=== PATIENT | male | born 1995 | race Caucasian/White ===

== ENCOUNTER 2021-11-19 20:38 | Observation (INO) ==
[2021-11-19 21:15] LABS: BASOPHILS # (AUTO) 0.1 K/uL (0-0.2); BASOPHILS % (AUTO) 0.8 % (0.0-3.0); EOSINOPHILS # (AUTO) 0.1 K/ul (0.0-0.7); EOSINOPHILS % (AUTO) 1.1 % (0.0-7.0); HEMATOCRIT 40.2 % (42.0-52.0); HEMOGLOBIN 13.6 g/dl (14.0-18.0); IMMATURE GRANULOCYTE % (AUTO) 0.6 % (0.0-5.0); LYMPHOCYTES # (AUTO) 1.1 K/uL (0.60-3.4); LYMPHOCYTES % (AUTO) 15.6 (10.0-50.0); MEAN CORPUSCULAR HEMOGLOBIN 30.3 pg (27.0-31.0); MEAN CORPUSCULAR HGB CONC 33.8 (31.8-35.4); MEAN CORPUSCULAR VOLUME 89.5 fl (80.0-94.0); MONOCYTES # (AUTO) 0.3 K/uL (0.4-2.0); MONOCYTES % (AUTO) 3.8 (0-10); NEUTROPHILS # (AUTO) 5.6 K/ul (2.0-6.9); NEUTROPHILS % (AUTO) 78.1 % (42.2-75.2); PLATELET COUNT 384 10^3/uL (140-440); RDW COEFFICIENT OF VARIATION 13.1 % (11.6-14.8); RED BLOOD COUNT 4.49 10^6/ul (4.70-6.10); WHITE BLOOD COUNT 7.12 K/ul (4.2-10.2)
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
[2021-11-19 21:29] LABS: ALBUMIN 4.27 g/dL (3.5-5.0); ALKALINE PHOSPHATASE 99.3 U/L (38-126); ASPARTATE AMINO TRANSFERASE 37.7 U/L (17-59); BILIRUBIN,TOTAL 0.25 mg/dL (0.2-1.3); BLOOD UREA NITROGEN 20.8 mg/dL (9-20); CALCIUM 9.56 mg/dL (8.4-10.2); CARBON DIOXIDE 28.2 mmol/L (22-30.0); CREATININE 0.98 mg/dL (0.60-1.10); GLUCOSE 106.7 mg/dL (74-106); POTASSIUM 4.51 mmol/L (3.5-5.1); SODIUM 140.2 mmol/L (134.5-145); TOTAL PROTEIN 6.97 g/dL (6.3-8.2)
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
[2021-11-19 21:30] LABS: ACETAMINOPHEN < 10.0 ug/ml (10-30); SALICYLATE < 1.00 mg/dL (0-20.0)
[2021-11-19 21:39] LABS: TROPONIN I < 0.012 ng/ml (0.0000-0.120)
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
[2021-11-19 22:26] LABS: AMPHETAMINE SCREEN,URINE POSITIVE (NEGATIVE); BARBITURATE SCREEN,URINE NEGATIVE (NEGATIVE); BENZODIAZEPINES SCREEN,URINE NEGATIVE (NEGATIVE); METHADONE URINE SCREEN NEGATIVE (NEGATIVE); METHAMPHETAMINES SCREEN,URINE POSITIVE (NEGATIVE); OPIATE SCREEN,URINE NEGATIVE (NEGATIVE); OXYCODONE URINE SCREEN NEGATIVE (NEGATIVE); PHENCYCLIDINE SCREEN,URINE NEGATIVE (NEGATIVE); PROPOXYPHENE URINE SCREEN NEGATIVE (NEGATIVE); TRICYCLIC ANTIDEPRESSANTS URIN NEGATIVE (NEGATIVE)
[2021-11-19 22:28] LABS: CANNABINOID SCREEN,URINE POSITIVE (NEGATIVE); COCAIN SCREEN,URINE NEGATIVE (NEGATIVE)
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
[2021-11-20] MEDS ORDERED: ATIVAN IVP PRN (01:52)
[2021-11-20] MEDS ORDERED: ZOFRAN 4 MG/2 ML IVP PRN (01:52)
[2021-11-20] MEDS: D5%-NS-KCL 20 MEQ/L IV SOL 1,000 ML IV SCH ×2 (02:54→11:56)
[2021-11-20 04:04] VITALS: BMI 21.7
[2021-11-20 05:38] LABS: BASOPHILS # (AUTO) 0.1 K/uL (0-0.2); BASOPHILS % (AUTO) 0.8 % (0.0-3.0); EOSINOPHILS # (AUTO) 0.1 K/ul (0.0-0.7); EOSINOPHILS % (AUTO) 0.8 % (0.0-7.0); HEMATOCRIT 37.6 % (42.0-52.0); HEMOGLOBIN 12.3 g/dl (14.0-18.0); IMMATURE GRANULOCYTE % (AUTO) 0.2 % (0.0-5.0); LYMPHOCYTES # (AUTO) 1.5 K/uL (0.60-3.4); LYMPHOCYTES % (AUTO) 23.9 (10.0-50.0); MEAN CORPUSCULAR HEMOGLOBIN 29.7 pg (27.0-31.0); MEAN CORPUSCULAR HGB CONC 32.7 (31.8-35.4); MEAN CORPUSCULAR VOLUME 90.8 fl (80.0-94.0); MONOCYTES # (AUTO) 0.4 K/uL (0.4-2.0); MONOCYTES % (AUTO) 6.5 (0-10); NEUTROPHILS # (AUTO) 4.1 K/ul (2.0-6.9); NEUTROPHILS % (AUTO) 67.8 % (42.2-75.2); PLATELET COUNT 305 10^3/uL (140-440); RDW COEFFICIENT OF VARIATION 12.9 % (11.6-14.8); RED BLOOD COUNT 4.14 10^6/ul (4.70-6.10); WHITE BLOOD COUNT 6.11 K/ul (4.2-10.2)
[2021-11-20 05:56] LABS: ALANINE AMINOTRANSFERASE 14.2 U/L (0-50); ALBUMIN 3.56 g/dL (3.5-5.0); ASPARTATE AMINO TRANSFERASE 30.5 U/L (17-59); BILIRUBIN,TOTAL 0.28 mg/dL (0.2-1.3); BLOOD UREA NITROGEN 14.3 mg/dL (9-20); CALCIUM 8.87 mg/dL (8.4-10.2); CARBON DIOXIDE 27.5 mmol/L (22-30.0); CHLORIDE 107.6 mmol/L (98-107); CREATININE 0.76 mg/dL (0.60-1.10); GLUCOSE 130.6 mg/dL (74-106); MAGNESIUM 2.2 mg/dL (1.6-2.3); POTASSIUM 4.06 mmol/L (3.5-5.1); SODIUM 140.1 mmol/L (134.5-145); TOTAL PROTEIN 6.11 g/dL (6.3-8.2)
[2021-11-20 08:36] LABS: CREATINE KINASE 227.1 U/L (55-170)
[2021-11-20 08:52] LABS: CREATINE KINASE MB 0.985 ng/ml (0.0-2.38)
[2021-11-20 10:28] VITALS: BP 123/79; TEMP 98.7
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
== END 2021-11-20 13:27 | disposition left against medical advice (07) ==
LOC: MEDSURG A 20:38 → ED 20:38 → MEDSURG A 11-20 02:19
PROVIDERS: ADMIT Internal Medicine Geriatric Medicine; ATTEND Emergency Medicine
DX: Z53.29 Procedure and treatment not carried out because of patient's decision for other reasons; F19.921 Other psychoactive substance use, unspecified with intoxication with delirium; M79.10 Myalgia, unspecified site; Z65.3 Problems related to other legal circumstances; T50.902A Poisoning by unspecified drugs, medicaments and biological substances, intentional self-harm, initial encounter; S09.90XA Unspecified injury of head, initial encounter; S16.1XXA Strain of muscle, fascia and tendon at neck level, initial encounter; V89.0XXA Person injured in unspecified motor-vehicle accident, nontraffic, initial encounter

== ENCOUNTER 2023-08-30 22:34 | Observation (INO) ==
[2023-08-30 22:52] VITALS: BMI 18.8
[2023-08-30] MEDS ORDERED: ATIVAN IVP STA (22:52)
[2023-08-30] MEDS ORDERED: INSTA-CHAR IN AQUEOUS BASE PO ONE (22:52)
[2023-08-30] MEDS ORDERED: ATIVAN IVP ONE (23:04)
[2023-08-30 23:06] LABS: BASOPHILS % (AUTO) 0.7 % (0.0-3.0); EOSINOPHILS # (AUTO) 0.1 K/ul (0.0-0.7); EOSINOPHILS % (AUTO) 2.5 % (0.0-7.0); HEMATOCRIT 39.5 % (42.0-52.0); HEMOGLOBIN 13.3 g/dl (14.0-18.0); LYMPHOCYTES # (AUTO) 1.5 K/uL (0.60-3.4); LYMPHOCYTES % (AUTO) 38.2 (10.0-50.0); MEAN CORPUSCULAR HGB CONC 33.7 (31.8-35.4); MEAN CORPUSCULAR VOLUME 92.1 fl (80.0-94.0); MONOCYTES # (AUTO) 0.2 K/uL (0.4-2.0); NEUTROPHILS # (AUTO) 2.1 K/ul (2.0-6.9); NEUTROPHILS % (AUTO) 52.6 % (42.2-75.2); PLATELET COUNT 209 10^3/uL (140-440); RDW COEFFICIENT OF VARIATION 11.4 % (11.6-14.8); RED BLOOD COUNT 4.29 10^6/ul (4.70-6.10); WHITE BLOOD COUNT 4.01 K/ul (4.2-10.2)
[2023-08-30 23:17] LABS: CREATINE KINASE 140.6 U/L (55-170); MAGNESIUM 1.97 mg/dL (1.6-2.3)
--- NOTE | 2023-08-30 23:18 | ED.PDOC ---
General ED Provider: Dr. VALERIE MANZANO DO Chief Complaint: Overdose Stated Complaint: Patient is a 27 yo M here for getting high on wellbutrin overdose Patient afebrile and tachycardic 140 with stable blood pressure Patient reports he took 20 tabs of 100 mg wellbutrin tabs 30 minutes prior to arrival His goal was to get high enough to pass out, but arrive at the ER before he passed out He is on suboxine He denies coingestions Patient alert and orietned x 4 GCS 15 speaking in full senteces on room air Poison control recommends 75 mg PO activated charcoal and PRN benzos to lower heart rate and aggitation Time Seen by Provider: 08/30/23 22:40 Information Source: Patient Nursing and Triage Documentation Reviewed and Agree: Yes Review of Systems Review Of Systems Constitutional: Denies Chills or Fever Eyes: Denies Foreign body sensation or Inflammation Ears, Nose, Mouth, Throat: Denies Ear pain, Loose teeth or Throat pain Respiratory: Denies Cough or Wheezing Cardiac: Reports Palpitations; Denies Chest pain or Syncope GI: Denies Constipated or Diarrhea : Denies Hematuria or Incontinence Musculoskeletal: Denies Back pain, Joint pain or Neck pain Skin: Denies Rash or Cyanosis Neurological: Denies Anxiety or Depressed Endocrine: Denies No symptoms or Excessive sweating Hematologic/Lymphatic: Denies No symptoms or Anemia All Other Systems: Reviewed and Negative [facility] Family History (Updated 11/20/21 @ 03:23 by SARAH GREENWOOD RN) Other Cancer Social History (Updated 11/20/21 @ 03:24 by SARAH GREENWOOD RN) Smoking and tobacco status: Current every day smoker Tobacco type: cigarettes Tobacco: How many years used: 15 Smoking risk assessment performed: Yes Physical Exam Physical Exam Appearance: Reports Well-appearing, Well-nourished and Thin Ill-appearing: Not Applicable Pain Distress: Not Applicable Eyes: Reports PATY and EOMI ENT: Reports Ears normal, Nose normal and Oropharynx normal Neck: Supple Respiratory: Reports Airway patent and Breath sounds clear; Denies Wheezes Cardiovascular: Reports No rub and Tachycardia GI/: Reports Soft and Nontender Musculoskeletal: Reports Normal strength and ROM intact Skin: Reports Warm and Dry Neurological: Reports Sensation intact and Motor intact Psychiatric: Reports Anxious and Depressed Interpretation EKG Interpretation EKG Interpretation By: ED Physician Time of EKG #1: 01:39 Rate: Tachy Interpretation: Sinus tach 139 no stemi qt wnl Time of EKG #2: 04:27 Rate: Normal EKG Interpretation: NSR rate 93 no stemi qt wnl Critical Care Note Critical Care Note Total Critical Care Time (mins): 50 Course Course 08/30/23 22:46 08/30/23 22:46 Orders, Labs, Meds: Lab Review 08/30/23 08/30/23 08/30/23 05:48 22:46 22:47 WBC 4.01 L RBC 4.29 L Hgb 13.3 L Hct 39.5 L MCV 92.1 MCH 31.0 MCHC 33.7 RDW Coeff of Maxwell 11.4 L Plt Count 209 Immature Gran % (Auto) 0.0 Neut % (Auto) 52.6 Lymph % (Auto) 38.2 [place] % (Auto) 6.0 Eos % (Auto) 2.5 Baso % (Auto) 0.7 Neut # (Auto) 2.1 Lymph # (Auto) 1.5 [place] # (Auto) 0.2 L Eos # (Auto) 0.1 Baso # (Auto) 0.0 Immature Gran # (Auto) 0.0 Sodium 140.7 Potassium 4.17 Chloride 102.4 Carbon Dioxide 29.5 Anion Gap 12.97 BUN 11.8 Creatinine 0.98 Estimated GFR (MDRD) 90.00 BUN/Creatinine Ratio 12.04 Glucose 100.5 Calcium 9.29 Magnesium 1.97 Total Bilirubin 0.33 AST 30.3 ALT 17.3 Alkaline Phosphatase 86.4 Total Creatine Kinase 140.6 CK-MB (CK-2) 1.200 CK-MB (CK-2) % 0.8500 Total Protein 7.27 Albumin 4.57 Globulin 2.70 Albumin/Globulin Ratio 1.69 TSH 1.600 Urine Color Urine Clarity Urine pH Ur Specific [place] Urine Protein Urine Glucose (UA) Urine Ketones Urine Blood Urine Nitrite Urine Bilirubin Urine Urobilinogen Ur Leukocyte Esterase Salicylate Level mg/dL 2.20 Urine Opiates Screen Ur Oxycodone Screen Urine Methadone Screen Ur Propoxyphene Screen Acetaminophen < 10.0 L Ur Barbiturates Screen U Tricyclic Antidepress Ur Phencyclidine Scrn Ur Amphetamine Screen U Methamphetamines Scrn U Benzodiazepines Scrn Urine Cocaine Screen U Cannabinoids Screen Plasma/Serum Alcohol < 10.0 SARS CoV-2 RNA Rapid HUSEYIN Negative 08/30/23 23:48 WBC RBC Hgb Hct MCV MCH MCHC RDW Coeff of Maxwell Plt Count Immature Gran % (Auto) Neut % (Auto) Lymph % (Auto) [place] % (Auto) Eos % (Auto) Baso % (Auto) Neut # (Auto) Lymph # (Auto) [place] # (Auto) Eos # (Auto) Baso # (Auto) Immature Gran # (Auto) Sodium Potassium Chloride Carbon Dioxide Anion Gap BUN Creatinine Estimated GFR (MDRD) BUN/Creatinine Ratio Glucose Calcium Magnesium Total Bilirubin AST ALT Alkaline Phosphatase Total Creatine Kinase CK-MB (CK-2) CK-MB (CK-2) % Total Protein Albumin Globulin Albumin/Globulin Ratio TSH Urine Color Yellow Urine Clarity Clear Urine pH 5.5 Ur Specific [place] 1.010 Urine Protein Negative Urine Glucose (UA) Negative Urine Ketones Negative Urine Blood Negative Urine Nitrite Negative Urine Bilirubin Negative Urine Urobilinogen 0.2 Ur Leukocyte Esterase Negative Salicylate Level mg/dL Urine Opiates Screen Negative Ur Oxycodone Screen Negative Urine Methadone Screen Negative Ur Propoxyphene Screen Negative Acetaminophen Ur Barbiturates Screen Negative U Tricyclic Antidepress Negative Ur Phencyclidine Scrn Negative Ur Amphetamine Screen Negative U Methamphetamines Scrn Negative U Benzodiazepines Scrn Negative Urine Cocaine Screen Negative U Cannabinoids Screen Negative Plasma/Serum Alcohol SARS CoV-2 RNA Rapid HUSEYIN Orders Category Date Time Status OBSERVATION [PLACE PATIENT OBSERVATION] .TO [facility] ADMISSION 08/31/23 06:40 Active (MONITORED BED) EKG-(ED ONLY) Stat CARDIO 08/30/23 22:46 Completed EKG-(ED ONLY) Stat CARDIO 08/31/23 03:36 Completed TELEMETRY MONITORING TELE CARE 08/31/23 06:40 Active ACETAMINOPHEN Stat LAB 08/30/23 22:46 Completed BLOOD ALCOHOL Stat LAB 08/30/23 22:46 Completed CBC W/ AUTO DIFF Stat LAB 08/30/23 22:46 Completed CK [CREATINE KINASE] Stat LAB 08/30/23 22:47 Completed COMPREHENSIVE METABOLIC PANEL Stat LAB 08/30/23 22:46 Completed COVID [SARS COV-2 RNA RAPID HUSEYIN] Stat LAB 08/30/23 05:48 Completed DRUG SCREEN, URINE, RAPID Stat LAB 08/30/23 23:48 Completed MAGNESIUM Stat LAB 08/30/23 22:47 Completed SALICYLATE Stat LAB 08/30/23 22:46 Completed THYROID STIMULATING HORMONE Stat LAB 08/30/23 22:46 Completed URINALYSIS C & S IF INDICATED Stat LAB 08/30/23 23:48 Completed Activated Charcoal [Insta-Edel in Aqueous Base] Meds 08/30/23 22:52 Discontinued 75 gm PO ONCE ONE Lorazepam Inj [Ativan] Meds 08/30/23 23:04 Discontinued 1 mg IVP ONCE ONE Lorazepam Inj [Ativan] Meds 08/30/23 22:52 Discontinued 1 mg IVP ONCE STA Sodium Chloride 0.9% [Sodium Chloride] 1,000 ml Meds 08/31/23 06:41 Active IV BOLUS Medications Generic Name Dose Route Start Last Admin Trade Name Freq PRN Reason Stop Dose Admin Sodium Chloride 1,000 mls @ 1,000 mls/hr 08/31/23 06:41 Sodium Chloride IV 08/31/23 07:40 BOLUS STA Discontinued Medications Generic Name Dose Route Start Last Admin Trade Name Freq PRN Reason Stop Dose Admin Charcoal 75 gm 08/30/23 22:52 08/30/23 22:59 Activated Charcoal 25 Gm/120 Ml PO 08/30/23 22:53 75 gm ONCE ONE Administration Lorazepam 1 mg 08/30/23 22:52 08/30/23 22:57 Lorazepam Inj 2 Mg/Ml Disp.Syringe IVP 08/30/23 22:53 1 mg ONCE STA Administration Lorazepam 1 mg 08/30/23 23:04 08/30/23 23:28 Lorazepam Inj 2 Mg/Ml Disp.Syringe IVP 08/30/23 23:05 1 mg ONCE ONE Administration Vital Signs: Temp Pulse Resp BP Pulse Ox 08/31/23 02:20 97 11 L 104/61 96 08/30/23 22:44 99.0 F 135 H 20 137/97 H 98 Patient is a 27 yo M here for accidental overdose of wellbutrin Patient afebrile, tachycardic (140's) with stable blood pressure Exam concerning for tachycardia Patient alert and oriented x4 CGS 15 "I just wanted to get high and I think I am going to pass out" He denies SI, HI or hallucinations 3+ labs and 2 images reviewed by me I consulted poison control - they recommend activated charcoal benzos and 24 elder r obs Patient was pleasant and polite and took all medications leading to improved care Consulted Hospitalist Team, they will obs and discharge at 10 pm when poison control obs window ends Patient agrees to plan He declines psychiatric consult [place] has had an uneventful stay and understands we are keeping him to prevent delayed seizures WDX: Wellbutrin accidental overdose acute with high complexity DDX: I considered withdrawal, sepsis, shock but these are less likely SDOH: Patient is underinsured with little support network and will do better with observation stay Placed on observation He has passed PO and ambulation challenge Critical care: 50 minutes for repeat evaluations, consults, therapies and serial reviews and exams for response to toxidrome Discharge Plan Discharge Patient Disposition: PLACED OBSERVATION Discharge Problem: Accidental overdose Did you review [place] WATCH ENGINEER for ALL controlled substances?: Not Applicable ED Provider: VALERIE MANZANO Condition: Stable Physician Progress Note: []
[2023-08-30 23:19] LABS: ALANINE AMINOTRANSFERASE 17.3 U/L (0-50); ALBUMIN 4.57 g/dL (3.5-5.0); ALKALINE PHOSPHATASE 86.4 U/L (38-126); ASPARTATE AMINO TRANSFERASE 30.3 U/L (17-59); BILIRUBIN,TOTAL 0.33 mg/dL (0.2-1.3); BLOOD UREA NITROGEN 11.8 mg/dL (9-20); CALCIUM 9.29 mg/dL (8.4-10.2); CARBON DIOXIDE 29.5 mmol/L (22-30.0); CHLORIDE 102.4 mmol/L (98-107); CREATININE 0.98 mg/dL (0.60-1.10); GLUCOSE 100.5 mg/dL (74-106); POTASSIUM 4.17 mmol/L (3.5-5.1); SODIUM 140.7 mmol/L (134.5-145); TOTAL PROTEIN 7.27 g/dL (6.3-8.2)
[2023-08-30 23:21] LABS: ACETAMINOPHEN < 10.0 ug/ml (10-30); BLOOD ALCOHOL < 10.0 mg/dL (0.0-50.0)
[2023-08-30 23:32] LABS: CREATINE KINASE MB 1.2 ng/ml (0.0-2.38)
[2023-08-30 23:54] LABS: BILIRUBIN,URINE Negative (NEGATIVE); CLARITY,URINE Clear (CLEAR); COLOR,URINE Yellow (YELLOW); GLUCOSE, URINE (UA) Negative (NEGATIVE); KETONES,URINE Negative (NEGATIVE); LEUKOCYTE ESTERASE ,URINE Negative (NEGATIVE); NITRITE,URINE Negative (NEGATIVE); PH,URINE 5.5 (5-9); PROTEIN,URINE Negative (NEGATIVE); URINE, BLOOD Negative (NEGATIVE); UROBILINOGEN,URINE 0.2 (0.2)
[2023-08-31 00:04] LABS: AMPHETAMINE SCREEN,URINE NEGATIVE (NEGATIVE); BARBITURATE SCREEN,URINE NEGATIVE (NEGATIVE); BENZODIAZEPINES SCREEN,URINE NEGATIVE (NEGATIVE); CANNABINOID SCREEN,URINE NEGATIVE (NEGATIVE); COCAIN SCREEN,URINE NEGATIVE (NEGATIVE); METHADONE URINE SCREEN NEGATIVE (NEGATIVE); METHAMPHETAMINES SCREEN,URINE NEGATIVE (NEGATIVE); OPIATE SCREEN,URINE NEGATIVE (NEGATIVE); OXYCODONE URINE SCREEN NEGATIVE (NEGATIVE); PHENCYCLIDINE SCREEN,URINE NEGATIVE (NEGATIVE); PROPOXYPHENE URINE SCREEN NEGATIVE (NEGATIVE); TRICYCLIC ANTIDEPRESSANTS URIN NEGATIVE (NEGATIVE)
[2023-08-31 06:36] LABS: SARS COV-2 RNA RAPID NAAT NEGATIVE (NEGATIVE)
[2023-08-31] MEDS ORDERED: SODIUM CHLORIDE 1,000 ML IV STA (06:41)
[2023-08-31] MEDS: ATIVAN IVP PRN ×2 (09:20→15:43)
[2023-08-31] MEDS: LACTATED RINGERS 1,000 ML IV SCH ×3 (09:23→21:09)
[2023-08-31] MEDS ORDERED: INSTA-CHAR W/ SORBITOL PO STA (09:48)
[2023-08-31] MEDS ORDERED: MAGNESIUM SULFATE 1 GM/2 ML VIAL IVP ONE (09:48)
[2023-08-31] MEDS ORDERED: MAGNESIUM SULFATE 1 GM/100 ML D5W 1 GM/100 ML BAG IV ONE (10:30)
--- NOTE | 2023-08-31 10:58 | PCM ---
Date of Service Date Seen by Provider: 08/31/23 Time Seen by Provider: 08:30 Admit Day/Time Admission Date: 08/31/23 Admission Time: 06:40 Reason for Admission Chief Complaint: OVERDOSE Hospital Provider Hospital Provider: Dom Vazquez PA-C, [facility] Hospitalist Group History of Present Illness History of Present Illness: Patient is a 27 year old male who presents to the ER with chief complaint of overdosing on wellbutrin. Patient denied SI/HI, was just hoping to get high and pass out. He told ER he took about 20 tablets of 100 mg tabs. Poison control was contacted. Labs unremarkable. EKG unremarkable except for sinus tachycardia. Poison control recommended activated charcoal, benzos prn for agitation, hypertension, seizure, tachycardia. He received 2 mg ativan in ER and HR improved to 90s. He was admitted to med surg. 24 hour obs recommended. Pt this morning is anxious. He again states he was not suicidal. He denies hx of suicidal attempt. 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 He decided to abuse wellbutrin to try to get a high like meth. He also takes suboxone, last dose yesterday. He states he took a mix of 150 mg and 300 mg tablets, a total of about 20. He states he wants to live and wasn't trying to harm himself. He is alert and oriented. He ate breakfast this morning while still in ER. He then later revealed to his RN that he took about 1200 mg more after the activated charcoal and before getting to the floor. Patient's belongin gs were removed from his room including any medications. Poison control contacted again and updated on additional wellbutrin dose. They state may give 1-2 gm of magnesium, repeat ekg, and may do 25-50 gm of charcoal again but it likely would not be helpful at this point. Otherwise continue seizure precautions and treat prn with benzos. Extend observation until 0800 tomorrow morning. Case Discussed With Case Discussed With: Patient's case was discussed with the ER Physicians, Dr. Vegas. [facility] Medical History (Updated 08/31/23 @ 12:23 by MARCELLE DEXTER, EGNEVA) Anxiety F41.9 - Anxiety disorder, unspecified (ICD-10) Depression F32.A - Depression, unspecified (ICD-10) Dislocated jaw S03.00XA - Dislocation of jaw, unspecified side, initial encounter (ICD-10) Surgical History (Updated 08/31/23 @ 12:23 by MARCELLE DEXTER RN) Hx of tonsillectomy Z90.89 - Acquired absence of other organs (ICD-10) Family History Other Cancer Social History (Updated 08/31/23 @ 12:27 by MARCELLE DEXTER RN) Smoking and tobacco status: Current every day smoker Tobacco type: cigarettes Tobacco: How many years used: 15 Smoking risk assessment performed: Yes Substance use type: former substance user, sedatives, opiates, methamphetamine and prescription drug Housing: other Marital status: S SINGLE Current occupational status: employed Sexually active: Yes Allergies Allergies Allergy/AdvReac Type Severity Reaction Status Date / Time No Known Allergies Allergy Verified 08/30/23 22:52 Current Medications Home Medications buprenorphine 8 mg-naloxone 2 mg sublingual tablet 1 tab sublingual DAILY 11/19/21 [History Confirmed 08/31/23 Last Taken 08/30/23] bupropion HCl 300 mg 24 hr tablet, extended release (Wellbutrin XL) 300 mg PO QAM 11/19/21 [History Confirmed 08/31/23 Last Taken 08/30/23] arginine (L-arginine) 500 mg capsule 500 mg PO DAILY 08/31/23 [History Confirmed 08/31/23 Last Taken 08/30/23] clonazepam 0.5 mg tablet (Klonopin) 0.5 mg PO BID 08/31/23 [History Confirmed 08/31/23 Last Taken 08/30/23] vitamin E 670 mg (1,000 unit) capsule 1,340 mg PO DAILY 08/31/23 [History Confirmed 08/31/23 Last Taken 08/30/23] Home Lactated Ringer's (Lactated Ringers) 1,000 mls @ 125 mls/hr IV .Q8H ETHEL Last Admin: 08/31/23 09:23 Dose: 125 mls/hr Lorazepam (Lorazepam Inj 2 Mg/Ml Disp.Syringe) 1 mg IVP Q4H PRN PRN Reason: tachycardia, hypertension, seizure Last Admin: 08/31/23 09:20 Dose: 1 mg Non-Formulary Medication (Buprenorphine-Naloxone) 1 tab SL DAILY ETHEL Discontinued Medications Charcoal (Activated Charcoal 25 Gm/120 Ml) 75 gm PO ONCE ONE Stop: 08/30/23 22:53 Last Admin: 08/30/23 22:59 Dose: 75 gm Charcoal/Sorbitol (Charcoal/Sorbitol Solution 25 Gm/120 Ml) 25 gm PO ONCE STA Stop: 08/31/23 09:49 Last Admin: 08/31/23 10:21 Dose: 25 gm Sodium Chloride (Sodium Chloride) 1,000 mls @ 1,000 mls/hr IV BOLUS STA Stop: 08/31/23 07:40 Last Infusion: 08/31/23 08:00 Dose: Infused Magnesium Sulfate/Dextrose (Magnesium Sulfate 1 Gm/100 Ml D5w) 1 gm in 100 mls @ 200 mls/hr IV ONCE ONE Stop: 08/31/23 10:59 Last Admin: 08/31/23 10:29 Dose: 200 mls/hr Lorazepam (Lorazepam Inj 2 Mg/Ml Disp.Syringe) 1 mg IVP ONCE STA Stop: 08/30/23 22:53 Last Admin: 08/30/23 22:57 Dose: 1 mg Lorazepam (Lorazepam Inj 2 Mg/Ml Disp.Syringe) 1 mg IVP ONCE ONE Stop: 08/30/23 23:05 Last Admin: 08/30/23 23:28 Dose: 1 mg Review of Systems Constitutional: Denies Fever Head: Reports Normocephalic and Atraumatic Throat: Denies Sore Throat or Difficulty Swallowing Cardiovascular: Reports Palpitations; Denies Chest pain or Chest Pressure Respiratory: Denies Cough or Shortness of air Gastrointestinal: Denies Nausea, Vomiting, Diarrhea or Abdominal pain Genitourinary: Denies Dysuria Dermatologic: Denies Rashes Neurological: Reports Tremor; Denies Headache or Dizziness Psychiatric: Reports Anxiety; Denies Suicidal or Hallucinations Physical examination Most Recent Vital Signs: Most Recent Vital Signs Temperature 98.3 F 08/31/23 10:00 Temperature Source Oral 08/31/23 10:00 Temperature Source Infrared 08/31/23 07:17 Pulse Rate 108 H 08/31/23 10:00 Respiratory Rate 13 08/31/23 10:00 Blood Pressure 132/87 08/31/23 10:00 Blood Pressure Mean 102 08/31/23 10:00 Blood Pressure Right Arm 126/79 08/31/23 07:55 Blood Pressure Location Right Arm 08/31/23 10:00 Blood Pressure Position Supine 08/31/23 10:00 O2 Sat by Pulse Oximetry 100 08/31/23 10:00 Oxygen Delivery Method Room Air 08/31/23 10:00 Height 6 ft 08/31/23 07:55 Weight 139 lb 08/31/23 07:55 Telemetry Heart Rate 100 11/20/21 13:00 Telemetry SPO2 100 11/20/21 05:25 Appearance: Positive Well-appearing, Well-nourished, No Apparent Distress and Alert and Oriented x3 Skin: Positive Rashes (blanching flushed rash comes and goes from chest/back/arms. ), [place], Warm and Good Turgor HEENT: Positive Normocephalic, Atraumatic and Other (+black from charcoal noted ) Neck: Positive Supple and Midline Trachea Chest/Lungs: Positive Clear to Auscultation Bilaterally; Negative Rales, Rhonci or Wheezes Heart: Positive Tachycardia GI/: Positive Soft, Nontender, Bowel Sounds Normal and No Distention Extremities: Negative Edema Neurological: Positive Alert, Oriented and Muscle Strength 5/5 in Upper and Lower Extremities Bilaterally Psychiatric: Positive Oriented x4 and Other (+anxious, flat affect ); Negative Appropriate Affect Labs This Visit Labs This Visit: Labs This Visit 08/30/23 08/30/23 08/30/23 05:48 22:46 22:47 WBC 4.01 L RBC 4.29 L Hgb 13.3 L Hct 39.5 L MCV 92.1 MCH 31.0 MCHC 33.7 RDW Coeff of [place] 11.4 L Plt Count 209 Immature Gran % (Auto) 0.0 Neut % (Auto) 52.6 Lymph % (Auto) 38.2 [place] % (Auto) 6.0 Eos % (Auto) 2.5 Baso % (Auto) 0.7 Neut # (Auto) 2.1 Lymph # (Auto) 1.5 [place] # (Auto) 0.2 L Eos # (Auto) 0.1 Baso # (Auto) 0.0 Immature Gran # (Auto) 0.0 Sodium 140.7 Potassium 4.17 Chloride 102.4 Carbon Dioxide 29.5 Anion Gap 12.97 BUN 11.8 Creatinine 0.98 Estimated GFR (MDRD) 90.00 BUN/Creatinine Ratio 12.04 Glucose 100.5 Calcium 9.29 Magnesium 1.97 Total Bilirubin 0.33 AST 30.3 ALT 17.3 Alkaline Phosphatase 86.4 Total Creatine Kinase 140.6 CK-MB (CK-2) 1.200 CK-MB (CK-2) % 0.8500 Total Protein 7.27 Albumin 4.57 Globulin 2.70 Albumin/Globulin Ratio 1.69 TSH 1.600 Urine Color Urine Clarity Urine pH Ur Specific [place] Urine Protein Urine Glucose (UA) Urine Ketones Urine Blood Urine Nitrite Urine Bilirubin Urine Urobilinogen Ur Leukocyte Esterase Salicylate Level mg/dL 2.20 Urine Opiates Screen Ur Oxycodone Screen Urine Methadone Screen Ur Propoxyphene Screen Acetaminophen < 10.0 L Ur Barbiturates Screen U Tricyclic Antidepress Ur Phencyclidine Scrn Ur Amphetamine Screen U Methamphetamines Scrn U Benzodiazepines Scrn Urine Cocaine Screen U Cannabinoids Screen Plasma/Serum Alcohol < 10.0 SARS CoV-2 RNA Rapid HUSEYIN Negative 08/30/23 23:48 WBC RBC Hgb Hct MCV MCH MCHC RDW Coeff of [place] Plt Count Immature Gran % (Auto) Neut % (Auto) Lymph % (Auto) [place] % (Auto) Eos % (Auto) Baso % (Auto) Neut # (Auto) Lymph # (Auto) [place] # (Auto) Eos # (Auto) Baso # (Auto) Immature Gran # (Auto) Sodium Potassium Chloride Carbon Dioxide Anion Gap BUN Creatinine Estimated GFR (MDRD) BUN/Creatinine Ratio Glucose Calcium Magnesium Total Bilirubin AST ALT Alkaline Phosphatase Total Creatine Kinase CK-MB (CK-2) CK-MB (CK-2) % Total Protein Albumin Globulin Albumin/Globulin Ratio TSH Urine Color Yellow Urine Clarity Clear Urine pH 5.5 Ur Specific [place] 1.010 Urine Protein Negative Urine Glucose (UA) Negative Urine Ketones Negative Urine Blood Negative Urine Nitrite Negative Urine Bilirubin Negative Urine Urobilinogen 0.2 Ur Leukocyte Esterase Negative Salicylate Level mg/dL Urine Opiates Screen Negative Ur Oxycodone Screen Negative Urine Methadone Screen Negative Ur Propoxyphene Screen Negative Acetaminophen Ur Barbiturates Screen Negative U Tricyclic Antidepress Negative Ur Phencyclidine Scrn Negative Ur Amphetamine Screen Negative U Methamphetamines Scrn Negative U Benzodiazepines Scrn Negative Urine Cocaine Screen Negative U Cannabinoids Screen Negative Plasma/Serum Alcohol SARS CoV-2 RNA Rapid HUSEYIN Review Statement Review Statement: I have independently reviewed and interpreted the labs/EKGs/imaging that were ordered by the ER provider. I have reviewed all outside records that are available currently in our EMR including imaging/notes/labs from previous visits. Plan Plan: 1. Accidental overdose - Denies SI/HI, trying to feel high. Continue with poison control recs. Mag 1 gm ordered. Repeating charcoal 25 gm now. EKG repeated, qt interval normal. Ativan 1 mg ordered prn for hypertension, tachycardia, agitation, seizures. Obs until at least 0800 tomorrow. Seizure precautions. 2. Anxiety/depression - Hold wellbutrin. 3. History of meth abuse - Continue suboxone to prevent withdrawal DVT Prophylaxis: Ambulation Time Spent: Greater than 80 minutes spent with patient, 50% of the time spent with this patient was devoted to counseling and coordination of care. Advanced [facility] Plannin minutes spent discussing advance care planning. FULL CODE Admit to: OBS Discussed Plan of Care with Dr. Ari Rolon. Addendum: In the afternoon case management visited patient to offer any resources for him. He revealed to them that he actually did intend to harm himself, but not kill himself. And that he had been thinking about taking the pills for a long time. Pt was placed on suicidal precautions and mental health contacted for eval. Medications Medication Orders: Medications Ordered Category Date Time Status Lorazepam Inj [Ativan] Meds 08/31/23 08:03 Active 1 mg IVP Q4H PRN Magnesium Sulfate Bag [Magnesium Sulfate 1 gm/100 ml Meds 08/31/23 10:30 Active D5w] 1 gm in 100 ml IV ONCE Ringers Lactated Solution [Lactated Ringers] 1,000 ml Meds 08/31/23 09:00 Active IV 125 mls/hr
[2023-08-31] MEDS ORDERED: BUPRENORPHINE NALOXONE SL SCH (16:00)
[2023-08-31 18:04] VITALS: BP 102/59; PULSE 79; RESP 14; TEMP 98
--- NOTE | 2023-08-31 20:28 | DCSUM ---
Admission Date Admission Date: 08/31/23 Discharge Date Discharge Date: 08/31/23 Admission Diagnosis Admission Diagnosis: 1. Overdose on wellbutrin Discharge Diagnosis Discharge Diagnosis: 1. Overdose on wellbutrin 2. Anxiety/depression 3. History of meth abuse 4. Left [facility] Provider Hospital Provider: Dom Vazquez PA-C, [facility] Summary of History and Physical Summary of History and Physical: Patient is a 27 year old male who presents to the ER with chief complaint of overdosing on wellbutrin. Patient denied SI/HI, was just hoping to get high and pass out. He told ER he took about 20 tablets of 100 mg tabs. Poison control was contacted. Labs unremarkable. EKG unremarkable except for sinus tachycardia. Poison control recommended activated charcoal, benzos prn for agitation, h ypertension, seizure, tachycardia. He received 2 mg ativan in ER and HR improved to 90s. He was admitted to med surg. 24 hour obs recommended. Pt this morning is anxious. He again states he was not suicidal. He denies hx of suicidal attempt. 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 He decided to abuse wellbutrin to try to get a high like meth. He also takes suboxone, last dose yesterday. He states he took a mix of 150 mg and 300 mg tablets, a total of about 20. He states he wants to live and wasn't trying to harm himself. He is alert and oriented. He ate breakfast this morning while still in ER. He then later revealed to his RN that he took about 1200 mg more after the activated charcoal and before getting to the floor. Patient's belongings were removed from his room including any medications. Poison control contacted again and updated on additional wellbutrin dose. They state may give 1-2 gm of magnesium, repeat ekg, and may do 25-50 gm of charcoal again but it likely would not be helpful at this point. Otherwise continue seizure precautions and treat prn with benzos. Extend observation until 0800 tomorrow morning. Hospital Course Subjective: Patient was given prn ativan and did well. Vitals stable. He continued to deny SI/HI to this provider and nursing staff. However in the afternoon he revealed to the porter sample case that he did intend to cause harm and he had been thinking of doing it for a long time. He was placed on suicidal precautions. Mental health was contacted. They came out in a timely manner and evaluated him. They cleared him and developed a safety plan. Shortly after they left he decided he wanted to leave AMA. He was oriented, alert, and felt to have mental capacity to make decisions for himself. He had been cleared by psych. He knew the risks including seizures and or . He still wanted to leave AMA. He was instructed multiple times to not drive. Patient then left AMA with a friend who picked him up. Appearance: No Apparent Distress and Alert HEENT: MMM and Supple CVS: No Murmur Abdomen: Soft, Non-Tender and No Distention Respiratory: No Dyspnea Extremities: No Edema Vital Signs: Most Recent Vital Signs Temperature 98.0 F 08/31/23 18:00 Temperature Source Oral 08/31/23 18:00 Temperature Source Infrared 08/31/23 07:17 Pulse Rate 79 08/31/23 18:00 Respiratory Rate 14 08/31/23 18:00 Blood Pressure 102/59 L 08/31/23 18:00 Blood Pressure Mean 73 08/31/23 18:00 Blood Pressure Right Arm 126/79 08/31/23 07:55 Blood Pressure Location Right Arm 08/31/23 18:00 Blood Pressure Position Supine 08/31/23 18:00 O2 Sat by Pulse Oximetry 99 08/31/23 18:00 Oxygen Delivery Method Room Air 08/31/23 19:00 Height 6 ft 08/31/23 07:55 Weight 139 lb 08/31/23 07:55 Telemetry Type Bedside Monitor 08/31/23 19:00 Telemetry Monitoring Continues 08/31/23 19:00 Telemetry Heart Rate 83 08/31/23 19:00 Telemetry SPO2 100 11/20/21 05:25 EKG [place] Interval 0.22 H 08/31/23 19:00 EKG QRS Interval 0.08 08/31/23 19:00 Telemetry Strip Reading SR WITH 1ST DEGREE AVB 08/31/23 19:00 Lab Results Last 24 Hours: 08/30/23 08/30/23 08/30/23 23:48 22:47 22:46 WBC 4.01 L RBC 4.29 L Hgb 13.3 L Hct 39.5 L MCV 92.1 MCH 31.0 MCHC 33.7 RDW Coeff of Maxwell 11.4 L Plt Count 209 Immature Gran % (Auto) 0.0 Neut % (Auto) 52.6 Lymph % (Auto) 38.2 Ford % (Auto) 6.0 Eos % (Auto) 2.5 Baso % (Auto) 0.7 Neut # (Auto) 2.1 Lymph # (Auto) 1.5 Ford # (Auto) 0.2 L Eos # (Auto) 0.1 Baso # (Auto) 0.0 Immature Gran # (Auto) 0.0 Sodium 140.7 Potassium 4.17 Chloride 102.4 Carbon Dioxide 29.5 Anion Gap 12.97 BUN 11.8 Creatinine 0.98 Estimated GFR (MDRD) 90.00 BUN/Creatinine Ratio 12.04 Glucose 100.5 Calcium 9.29 Magnesium 1.97 Total Bilirubin 0.33 AST 30.3 ALT 17.3 Alkaline Phosphatase 86.4 Total Creatine Kinase 140.6 CK-MB (CK-2) 1.200 CK-MB (CK-2) % 0.8500 Total Protein 7.27 Albumin 4.57 Globulin 2.70 Albumin/Globulin Ratio 1.69 TSH 1.600 Urine Color Yellow Urine Clarity Clear Urine pH 5.5 Ur Specific [place] 1.010 Urine Protein Negative Urine Glucose (UA) Negative Urine Ketones Negative Urine Blood Negative Urine Nitrite Negative Urine Bilirubin Negative Urine Urobilinogen 0.2 Ur Leukocyte Esterase Negative Salicylate Level mg/dL 2.20 Urine Opiates Screen Negative Ur Oxycodone Screen Negative Urine Methadone Screen Negative Ur Propoxyphene Screen Negative Acetaminophen < 10.0 L Ur Barbiturates Screen Negative U Tricyclic Antidepress Negative Ur Phencyclidine Scrn Negative Ur Amphetamine Screen Negative U Methamphetamines Scrn Negative U Benzodiazepines Scrn Negative Urine Cocaine Screen Negative U Cannabinoids Screen Negative Plasma/Serum Alcohol < 10.0 SARS CoV-2 RNA Rapid HUSEYIN 08/30/23 05:48 WBC RBC Hgb Hct MCV MCH MCHC RDW Coeff of Maxwell Plt Count Immature Gran % (Auto) Neut % (Auto) Lymph % (Auto) [place] % (Auto) Eos % (Auto) Baso % (Auto) Neut # (Auto) Lymph # (Auto) [place] # (Auto) Eos # (Auto) Baso # (Auto) Immature Gran # (Auto) Sodium Potassium Chloride Carbon Dioxide Anion Gap BUN Creatinine Estimated GFR (MDRD) BUN/Creatinine Ratio Glucose Calcium Magnesium Total Bilirubin AST ALT Alkaline Phosphatase Total Creatine Kinase CK-MB (CK-2) CK-MB (CK-2) % Total Protein Albumin Globulin Albumin/Globulin Ratio TSH Urine Color Urine Clarity Urine pH Ur Specific [place] Urine Protein Urine Glucose (UA) Urine Ketones Urine Blood Urine Nitrite Urine Bilirubin Urine Urobilinogen Ur Leukocyte Esterase Salicylate Level mg/dL Urine Opiates Screen Ur Oxycodone Screen Urine Methadone Screen Ur Propoxyphene Screen Acetaminophen Ur Barbiturates Screen U Tricyclic Antidepress Ur Phencyclidine Scrn Ur Amphetamine Screen U Methamphetamines Scrn U Benzodiazepines Scrn Urine Cocaine Screen U Cannabinoids Screen Plasma/Serum Alcohol SARS CoV-2 RNA Rapid HUSEYIN Negative Discharge Instructions Discharge Planning: Discharge Planning > [address] Ari Rolon. Discharge Medications: Medications at Discharge (Home Meds & RX) buprenorphine 8 mg-naloxone 2 mg sublingual tablet 1 tab sublingual DAILY 11/19/21 bupropion HCl 300 mg 24 hr tablet, extended release (Wellbutrin XL) 300 mg PO QAM 11/19/21 arginine (L-arginine) 500 mg capsule 500 mg PO DAILY 08/31/23 clonazepam 0.5 mg tablet (Klonopin) 0.5 mg PO BID 08/31/23 vitamin E 670 mg (1,000 unit) capsule 1,340 mg PO DAILY 08/31/23 Discharge Plan Discharge Discharge Orders: Discharge Patient (ONCE); Ordered 08/31/23 Ordered By: DOM VAZQUEZ Activity Restrictions/Additional Instructions: Patient left AMA Patient Disposition: AMA Prescriptions: No Action vitamin E 670 mg (1,000 unit) capsule 1,340 mg PO DAILY arginine (L-arginine) 500 mg capsule 500 mg PO DAILY clonazepam [Klonopin] 0.5 mg tablet 0.5 mg PO BID buprenorphine-naloxone [Suboxone] 8-2 mg Tablet, Sublingual 1 tab SUBLINGUAL DAILY bupropion HCl [Wellbutrin XL] 300 mg Tablet Extended Release 24 Hr 300 mg PO QAM Did you review [place] [employer] for ALL controlled substances?: Yes Discussed opioids are addictive and Narcan is available by prescription or from pharmacy.: No Condition: Stable
== END 2023-08-31 19:40 | disposition left against medical advice (07) ==
LOC: ED 22:34 → SCU 22:34 → MEDSURG B 22:34
PROVIDERS: ADMIT Physician Assistant; ATTEND Hospitalist
DX: Z79.899 Other long term (current) drug therapy; Z20.822 Contact with and (suspected) exposure to COVID-19; R00.0 Tachycardia, unspecified; F32.A Depression, unspecified; F41.9 Anxiety disorder, unspecified; Z86.59 Personal history of other mental and behavioral disorders; T43.011A Poisoning by tricyclic antidepressants, accidental (unintentional), initial encounter; Z51.81 Encounter for therapeutic drug level monitoring; F17.210 Nicotine dependence, cigarettes, uncomplicated